=== PATIENT | male | born 1990 | race African-American/Black ===

== ENCOUNTER 2025-01-18 12:20 | Emergency (ER) | payer BC ==
[~2025-01-18] VITALS: Ht 160 cm; Wt 54.4 kg
[2025-01-18 12:24] VITALS: BP 106/46; TEMP 98.3
[2025-01-18] MEDS ORDERED: AMOX-427 PO (12:34)
[2025-01-18] MEDS ORDERED: IBUP-1957 PO (12:34)
[2025-01-18 12:44] VITALS: O2SAT 99
== END 2025-01-18 12:45 | disposition home or self-care (01) ==
LOC: ER 12:28
DX: K08.89 Other specified disorders of teeth and supporting structures (principal); Z79.1 Long term (current) use of non-steroidal anti-inflammatories (NSAID)